=== PATIENT | female | born 2000 | race Caucasian/White ===

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

== ENCOUNTER 2018-06-17 07:48 | Inpatient (IN) | payer OTHER ==
[~2018-06-17] VITALS: Ht 162.6 cm; Wt 0.4 kg
[~2018-06-17 07:48] MED LIST changes: +Verotin-Gr Cap1 EACH PO
[2018-06-17] MEDS ORDERED: IRON 100 PLUS1 EACH (09:25)
[2018-06-17 09:50] LABS: BASOPHILS ABSOLUTE AUTO 0.03 K/mm3 (0.00-0.23); BASOPHILS PERCENT AUTO 0 % (0-2); EOSINOPHILS ABSOLUTE AUTO 0.04 K/mm3 (0.00-0.68); EOSINOPHILS PERCENT AUTO 0 % (0-6); Hematocrit 35.4 % (33.0-51.0); Hemoglobin 11.5 g/dL (11.5-16.0); IMMATURE GRAN ABSOLUTE AUTO 0.15 K/mm3 (0.00-0.10); IMMATURE GRAN PERCENT AUTO 1 % (0-1); LYMPHOCYTES ABSOLUTE AUTO 1.66 K/mm3 (0.84-5.20); LYMPHOCYTES PERCENT AUTO 14 % (21-46); MONOCYTES ABSOLUTE AUTO 0.68 K/mm3 (0.16-1.47); MONOCYTES PERCENT AUTO 6 % (4-13); Mean Corpuscular HGB 27.6 pg (26.0-34.0); Mean Corpuscular HGB Conc 32.5 g/dL (31.5-36.5); Mean Corpuscular Volume 85 fL (80-100); NEUTROPHILS ABSOLUTE AUTO 9.27 K/mm3 (1.96-9.15); NEUTROPHILS PERCENT AUTO 78 % (41-73); Platelet Count 219 K/mm3 (150-400); RDW Coefficient Variation 13.3 % (11.7-14.2); RDW Standard Deviation 41.5 fL (35.1-46.3); Red Blood Cell Count 4.16 M/mm3 (3.80-5.20); White Blood Cell Count 11.83 K/mm3 (4.00-11.30)
[2018-06-18 06:15] LABS: BASOPHILS ABSOLUTE AUTO 0.02 K/mm3 (0.00-0.23); BASOPHILS PERCENT AUTO 0 % (0-2); EOSINOPHILS ABSOLUTE AUTO 0.06 K/mm3 (0.00-0.68); EOSINOPHILS PERCENT AUTO 1 % (0-6); Hemoglobin 10.4 g/dL (11.5-16.0); IMMATURE GRAN ABSOLUTE AUTO 0.13 K/mm3 (0.00-0.10); IMMATURE GRAN PERCENT AUTO 1 % (0-1); LYMPHOCYTES ABSOLUTE AUTO 1.95 K/mm3 (0.84-5.20); LYMPHOCYTES PERCENT AUTO 18 % (21-46); MONOCYTES PERCENT AUTO 8 % (4-13); Mean Corpuscular HGB 27.4 pg (26.0-34.0); Mean Corpuscular HGB Conc 31.5 g/dL (31.5-36.5); Mean Corpuscular Volume 87 fL (80-100); Mean Platelet Volume 10.1 fL (9.1-12.4); NEUTROPHILS ABSOLUTE AUTO 7.75 K/mm3 (1.96-9.15); NEUTROPHILS PERCENT AUTO 72 % (41-73); Platelet Count 167 K/mm3 (150-400); RDW Coefficient Variation 13.7 % (11.7-14.2); RDW Standard Deviation 42.7 fL (35.1-46.3); Red Blood Cell Count 3.79 M/mm3 (3.80-5.20); White Blood Cell Count 10.71 K/mm3 (4.00-11.30)
--- NOTE | 2018-06-18 06:39 | NUR ---
PATIENT CALLED COMPLAINING OF CRAMPING PAIN TO ABDOMEN. IT WAS EXPLAINED TO PATIENT THAT SHE WAS PRESCRIBED IBUPROFEN Q8HRS PRN AND NEXT DOSE CAN BE TAKEN AT 0900. PATIENT'S MOM WAS VERY UPSET BY THIS. I EXPLAINED THAT LAST NIGHT THE PATIENT WAS OFFERED IV TORADOL TO WHICH SHE REFUSED THE MEDICATION. SHE ALSO REQUESTED THAT HER IV BE REMOVED. THE IV WAS REMOVED AT THE PATIENT'S REQUEST AFTER IT WAS EXPLAINED TO HER THAT SHE MIGHT HAVE TO GET ONE PUT BACK IN DEPENDENT ON HER LABS IN THE AM. PATIENT WAS OKAY WITH THAT. SO AGAIN IT WAS EXPLAINED AT THIS TIME THAT THE TORADOL WOULD HAVE BEEN MUCH MORE EFFECTIVE WITH PAIN MANAGEMENT AND SHE COULD HAVE HAD IT Q6, BUT SHE DID NOT WANT THE TORADOL. THE PATIENT SEEMED TO EXPRESS SOME UNDERSTANDING AT THIS POINT. I TOLD HER THAT THE ONLY OTHER THING ORDERED FOR HER WAS TYLENOL 325MG. SHE WAS WILLING TO GIVE THAT A TRY. WILL INFORM DAY SHIFT RN OF SITUATION. PATIENT KNOWS TO NOTIFY ONCOMING RN IF THE TYLENOL IS INEFFECTIVE AND WE CAN POSSIBLY REQUEST SOMETHING MORE FROM HER PROVIDER.
[2018-06-18] MEDS ORDERED: IBUP800 PO (13:43)
--- NOTE | 2018-06-18 13:44 | NUR ---
CONSULT. MOM IS YOUNG AND INEXPERIENCED. GRANDMOTHER HAS BEEN CHANGING BABY DIAPERS. MOM STATES BF IS GOING WELL, VAGUELY LISTENING TO EDUCATION INSTRUCTIONS. INSTRUCT HOW TO WIDEN LATCH FURTHER IF SHE FEELS PINCHING. INSTRUCT IN CHANGES TO EXPECT DURING FIRST WEEK WITH FEEDINGS AND WITH BABY AND REFERRED TO BF BROCHURE AND PAGE 18 OF BF BOOKLET. SHE THEN STARTED TALKING ON HER PHONE. SPOUSE MORE ATTENTIVE TO INFORMATION. NO QUESTIONS.
--- NOTE | 2018-06-18 15:31 | NUR ---
DISCHARGE DISCHARGE TEACHING DONE. PARENTS VERBALIZES UNDERSTANDING OF INSTRUCTIONS AND FOLLOW UP APPOINTMENTS. NO QUESTIONS OR CONCERNS.
== END 2018-06-18 15:55 | disposition home or self-care (01) | DRG 806 ==
LOC: BC 07:48
PROVIDERS: ADMIT Nurse Practitioner Obstetrics & Gynecology
PROC: 10E0XZZ Delivery of Products of Conception, External Approach (ICD-10-PCS; principal; 2018-06-18)
PROC: 00HU33Z Insertion of Infusion Device into Spinal Canal, Percutaneous Approach (ICD-10-PCS; 2018-06-18)
PROC: 3E0R3BZ Introduction of Anesthetic Agent into Spinal Canal, Percutaneous Approach (ICD-10-PCS; 2018-06-18)
DX: O24.420 Gestational diabetes mellitus in childbirth, diet controlled (principal); O99.324 Drug use complicating childbirth; Z37.0 Single live birth; O99.52 Diseases of the respiratory system complicating childbirth; J45.990 Exercise induced bronchospasm; Z3A.39 39 weeks gestation of pregnancy; O99.334 Smoking (tobacco) complicating childbirth; F17.210 Nicotine dependence, cigarettes, uncomplicated
CPT/HCPCS: 36415; 36416; 51702; 82947; 85025; J1885; J2590; J3010; J7120

== ENCOUNTER → 2019-06-23 | Outpatient (CLI) | payer OTHER ==
[~2019-06-23] MED LIST changes: +IRON 100 PLUS1 EACH
== END | disposition home or self-care (01) ==
LOC: LAB 18:08 → LAB SHORT 18:08
DX: R30.0 Dysuria (principal)
CPT/HCPCS: 87077; 87086; 87186

== ENCOUNTER 2021-08-21 04:45 | Emergency (ER) | payer OTHER ==
[~2021-08-21] VITALS: Ht 157.5 cm; Wt 47.6 kg
[~2021-08-21 04:45] MED LIST changes: +DOCU100 PO
[2021-08-21] MEDS ORDERED: [UNRECOGNIZED DRUG - OTHER] MC (05:15)
[2021-08-21] MEDS ORDERED: ALBU90OI INH (07:20)
[2021-08-21] MEDS ORDERED: BENZ100A PO (07:20)
[2021-08-21] MEDS ORDERED: ALLERCLEAR10 MG PO (07:20)
== END 2021-08-21 07:31 | disposition home or self-care (01) ==
LOC: ER 04:45
DX: J45.901 Unspecified asthma with (acute) exacerbation (principal); J20.9 Acute bronchitis, unspecified; R11.10 Vomiting, unspecified; F17.200 Nicotine dependence, unspecified, uncomplicated; Z88.0 Allergy status to penicillin; R10.819 Abdominal tenderness, unspecified site
CPT/HCPCS: 71046; 94640; 94664; A9270

== ENCOUNTER 2021-08-27 09:20 | Emergency (ER) | payer OTHER ==
[~2021-08-27] VITALS: Ht 157.5 cm; Wt 52.2 kg
[~2021-08-27 09:20] MED LIST changes: +ALBU90OI INH; +ALLERCLEAR10 MG PO; +BENZ100A PO; +[UNRECOGNIZED DRUG - OTHER] MC
[2021-08-27 10:45] LABS: Anion Gap 5 mmol/L (6-16); Beta HCG, Quantitative, Serum 30 mIU/mL (0-3); Blood Urea Nitrogen 7 mg/dL (8-24); Bun/Creatinine Ratio 10.1 (12.0-20.0); CO2, Blood 27 mmol/L (21-32); Calcium, Blood 9.3 mg/dL (8.5-10.1); Chloride, Blood 107 mmol/L (98-108); Glomerular Filtration Rate >60 (60-); Glucose, Blood 93 mg/dL (70-99); Potassium, Blood 3.4 mmol/L (3.5-5.5); Sodium, Blood 139 mmol/L (136-145)
[2021-08-27 10:55] LABS: BASOPHILS ABSOLUTE AUTO 0.01 K/mm3 (0.00-0.23); BASOPHILS PERCENT AUTO 0 % (0-2); EOSINOPHILS ABSOLUTE AUTO 0.06 K/mm3 (0.00-0.68); EOSINOPHILS PERCENT AUTO 1 % (0-6); Hematocrit 35.5 % (33.0-51.0); IMMATURE GRAN ABSOLUTE AUTO 0.01 K/mm3 (0.00-0.10); IMMATURE GRAN PERCENT AUTO 0 % (0-1); LYMPHOCYTES ABSOLUTE AUTO 1.31 K/mm3 (0.84-5.20); LYMPHOCYTES PERCENT AUTO 21 % (21-46); MONOCYTES ABSOLUTE AUTO 0.44 K/mm3 (0.16-1.47); MONOCYTES PERCENT AUTO 7 % (4-13); Mean Corpuscular HGB 28.7 pg (26.0-34.0); Mean Corpuscular HGB Conc 33.8 g/dL (31.5-36.5); Mean Corpuscular Volume 85 fL (80-100); Mean Platelet Volume 10.2 fL (9.1-12.4); NEUTROPHILS ABSOLUTE AUTO 4.41 K/mm3 (1.96-9.15); NEUTROPHILS PERCENT AUTO 71 % (41-73); Platelet Count 237 K/mm3 (150-400); RDW Coefficient Variation 11.8 % (11.7-14.2); RDW Standard Deviation 36.1 fL (35.1-46.3); Red Blood Cell Count 4.18 M/mm3 (3.80-5.20); White Blood Cell Count 6.24 K/mm3 (4.00-11.30)
[2021-08-27 11:07] LABS: Source, Urine Clean Catch
[2021-08-27 11:27] LABS: Appearance, Urine Clear (Clear); Bilirubin, Urine Neg (Neg); Blood, Urine 4+ (Neg); Color, Urine Yellow (P-Yellow); Glucose Qualitative, Urine Neg (Neg); Ketones, Urine 1+ (Neg); Leukocyte Esterase, Urine 1+ (Neg); Nitrite, Urine Neg (Neg); Protein, Urine 2+ (Neg); Urobilinogen, Urine 1+ (Normal); pH, Urine 6.5 (5.0-8.0)
[2021-08-27 12:00] LABS: Squamous Epithelial Cells Rare /hpf (Few); White Blood Cells, Urine 0-2 /hpf (0-5)
[2021-08-27 12:01] LABS: Bacteria Mod /hpf; Mucus Mod (0-Heavy)
== END 2021-08-27 13:37 | disposition home or self-care (01) ==
LOC: ER 09:20
PROVIDERS: Physician Assistant
DX: O03.4 Incomplete spontaneous abortion without complication (principal); Z88.0 Allergy status to penicillin; Z79.899 Other long term (current) drug therapy
CPT/HCPCS: 36415; 76801; 76817; 80048; 81001; 84702; 85025

== ENCOUNTER 2022-01-27 07:37 | Emergency (ER) | payer OTHER ==
[~2022-01-27] VITALS: Ht 160 cm; Wt 51.3 kg
[2022-01-27] MEDS ORDERED: PRENATE ENHANC1 EACH PO (08:13)
[2022-01-27 08:38] LABS: BASOPHILS ABSOLUTE AUTO 0.03 K/mm3 (0.00-0.23); BASOPHILS PERCENT AUTO 0 % (0-2); EOSINOPHILS ABSOLUTE AUTO 0.16 K/mm3 (0.00-0.68); EOSINOPHILS PERCENT AUTO 2 % (0-6); Hematocrit 38.5 % (33.0-51.0); Hemoglobin 13.1 g/dL (11.5-16.0); IMMATURE GRAN ABSOLUTE AUTO 0.01 K/mm3 (0.00-0.10); IMMATURE GRAN PERCENT AUTO 0 % (0-1); LYMPHOCYTES ABSOLUTE AUTO 1.54 K/mm3 (0.84-5.20); LYMPHOCYTES PERCENT AUTO 23 % (21-46); MONOCYTES ABSOLUTE AUTO 0.43 K/mm3 (0.16-1.47); MONOCYTES PERCENT AUTO 6 % (4-13); Mean Corpuscular HGB 29.4 pg (26.0-34.0); Mean Corpuscular Volume 87 fL (80-100); Mean Platelet Volume 10.1 fL (9.1-12.4); NEUTROPHILS ABSOLUTE AUTO 4.66 K/mm3 (1.96-9.15); NEUTROPHILS PERCENT AUTO 68 % (41-73); Platelet Count 210 K/mm3 (150-400); RDW Coefficient Variation 12.5 % (11.7-14.2); RDW Standard Deviation 39.7 fL (35.1-46.3); Red Blood Cell Count 4.45 M/mm3 (3.80-5.20); White Blood Cell Count 6.83 K/mm3 (4.00-11.30)
[2022-01-27 09:04] LABS: Bun/Creatinine Ratio 15.3 (12.0-20.0); Calcium, Blood 8.3 mg/dL (8.5-10.1); Creatinine, Blood 0.79 mg/dL (0.40-1.00); Potassium, Blood 4.3 mmol/L (3.5-5.5)
== END 2022-01-27 09:40 | disposition home or self-care (01) ==
LOC: ER 07:37
PROVIDERS: Emergency Medicine
DX: O03.9 Complete or unspecified spontaneous abortion without complication (principal); Z3A.09 9 weeks gestation of pregnancy; Z87.891 Personal history of nicotine dependence
CPT/HCPCS: 36415; 76801; 80048; 84702; 85025; 86900; 86901; 99284-25

== ENCOUNTER 2023-11-01 23:19 | Emergency (ER) | payer OTHER ==
[~2023-11-01] VITALS: Ht 160 cm; Wt 79.4 kg
[~2023-11-01 23:19] MED LIST changes: +IBU800 M1 PO; +PRENATE ENHANC1 EACH PO
[2023-11-01] MEDS ORDERED: NS 1,000 ML IV SCH (23:40)
[2023-11-01] MEDS ORDERED: INCASSIA0.35 MG PO (23:47)
[2023-11-02 00:12] LABS: BASOPHILS ABSOLUTE AUTO 0.02 K/mm3 (0.00-0.23); BASOPHILS PERCENT AUTO 0 % (0-2); EOSINOPHILS ABSOLUTE AUTO 0.11 K/mm3 (0.00-0.68); EOSINOPHILS PERCENT AUTO 2 % (0-6); Hematocrit 35.6 % (33.0-51.0); Hemoglobin 11.7 g/dL (11.5-16.0); IMMATURE GRAN ABSOLUTE AUTO 0.01 K/mm3 (0.00-0.10); IMMATURE GRAN PERCENT AUTO 0 % (0-1); LYMPHOCYTES PERCENT AUTO 35 % (21-46); MONOCYTES ABSOLUTE AUTO 0.43 K/mm3 (0.16-1.47); MONOCYTES PERCENT AUTO 8 % (4-13); Mean Corpuscular HGB 26.3 pg (26.0-34.0); Mean Corpuscular HGB Conc 32.9 g/dL (31.5-36.5); Mean Corpuscular Volume 80 fL (80-100); Mean Platelet Volume 10.1 fL (9.1-12.4); NEUTROPHILS ABSOLUTE AUTO 3.19 K/mm3 (1.96-9.15); NEUTROPHILS PERCENT AUTO 55 % (41-73); Platelet Count 260 K/mm3 (150-400); RDW Coefficient Variation 13.1 % (11.7-14.2); RDW Standard Deviation 37.7 fL (35.1-46.3); Red Blood Cell Count 4.45 M/mm3 (3.80-5.20); White Blood Cell Count 5.76 K/mm3 (4.00-11.30)
[2023-11-02 00:27] LABS: Bun/Creatinine Ratio 8.9 (12.0-20.0); Creatinine, Blood 0.78 mg/dL (0.40-1.00); Potassium, Blood 3.2 mmol/L (3.5-5.5)
[2023-11-02 01:00] VITALS: BP 114/65
[2023-11-02] MEDS ORDERED: Potassium Chloride 20 MEQ TabCR PO ONE (01:05)
== END 2023-11-02 01:11 | disposition home or self-care (01) ==
LOC: ER 23:19
PROVIDERS: Emergency Medicine
DX: R55 Syncope and collapse (principal); E86.0 Dehydration; E87.6 Hypokalemia; Z88.0 Allergy status to penicillin; Z87.891 Personal history of nicotine dependence; Z79.899 Other long term (current) drug therapy
CPT/HCPCS: 80048; 85025; A9270; J7030

== ENCOUNTER 2024-02-24 16:27 | Emergency (ER) | payer OTHER ==
[~2024-02-24] VITALS: Ht 160 cm; Wt 69.8 kg
[~2024-02-24 16:27] MED LIST changes: +INCASSIA0.35 MG PO
[2024-02-24 16:36] VITALS: BP 145/62
[2024-02-24] MEDS ORDERED: Ketorolac Tromethamine 15mg Vial IM ONE (16:50)
[2024-02-24] MEDS ORDERED: HYDR1TAB94 PO (17:36)
== END 2024-02-24 18:07 | disposition home or self-care (01) ==
LOC: ER 16:27
DX: S92.511A Displaced fracture of proximal phalanx of right lesser toe(s), initial encounter for closed fracture (principal); W18.09XA Striking against other object with subsequent fall, initial encounter; Z88.0 Allergy status to penicillin; Z79.899 Other long term (current) drug therapy; Z87.891 Personal history of nicotine dependence
CPT/HCPCS: 73630; 96372; 99283-25; J1885

== ENCOUNTER → 2025-03-18 | Outpatient (CLI) | payer OTHER ==
[~2025-03-18] MED LIST changes: +HYDR1TAB94 PO
[2025-03-18 14:09] LABS: BASOPHILS ABSOLUTE AUTO 0.03 K/mm3 (0.00-0.23); BASOPHILS PERCENT AUTO 1 % (0-2); EOSINOPHILS ABSOLUTE AUTO 0.02 K/mm3 (0.00-0.68); EOSINOPHILS PERCENT AUTO 1 % (0-6); Hematocrit 40.2 % (33.0-51.0); Hemoglobin 13.4 g/dL (11.5-16.0); IMMATURE GRAN ABSOLUTE AUTO 0.01 K/mm3 (0.00-0.10); IMMATURE GRAN PERCENT AUTO 0 % (0-1); LYMPHOCYTES ABSOLUTE AUTO 1.42 K/mm3 (0.84-5.20); LYMPHOCYTES PERCENT AUTO 32 % (21-46); MONOCYTES ABSOLUTE AUTO 0.33 K/mm3 (0.16-1.47); MONOCYTES PERCENT AUTO 7 % (4-13); Mean Corpuscular HGB Conc 33.3 g/dL (31.5-36.5); Mean Corpuscular Volume 84 fL (80-100); NEUTROPHILS ABSOLUTE AUTO 2.62 K/mm3 (1.96-9.15); NEUTROPHILS PERCENT AUTO 59 % (41-73); NRBC ABSOLUTE 0.00 K/mm3 (0.00-0.02); NRBC Auto 0.0 /100 WBC (0.0-0.2); Platelet Count 238 K/mm3 (150-400); RDW Coefficient Variation 12.7 % (11.7-14.2); RDW Standard Deviation 38.6 fL (35.1-46.3)
[2025-03-18 14:23] LABS: Alanine Aminotransfer (ALT/SGP 13.0 U/L (12-78); Albumin, Blood 5.0 g/dL (3.4-5.0); Albumin/Globulin Ratio 1.6 (0.8-1.8); Anion Gap 14.0 mmol/L (3-11); Aspartate Aminotrans (AST/SGOT 13.0 U/L (12-37); Bilirubin, Total 0.8 mg/dL (0.1-1.0); Blood Urea Nitrogen 9.0 mg/dL (8-24); CO2, Blood 25.0 mmol/L (21-32); Calcium, Blood 9.1 mg/dL (8.5-10.1); Chloride, Blood 104.0 mmol/L (98-108); Creatinine, Blood 0.94 mg/dL (0.40-1.00); Globulin, Blood 3.1 g/dL (2.2-4.0); Glucose, Blood 89.0 mg/dL (70-99); Potassium, Blood 3.9 mmol/L (3.5-5.5); Sodium, Blood 139.0 mmol/L (136-145); Total Protein, Blood 8.1 g/dL (6.4-8.2)
[2025-03-18 15:04] LABS: Ferritin, Serum 22.0 ng/mL (8-252); Total Iron Binding Capacity 326.0 ug/dL (250-450)
== END ==
LOC: LAB 14:06 → LAB SHORT 14:06
PROVIDERS: Physician Assistant
DX: R55 Syncope and collapse (principal); Z86.39 Personal history of other endocrine, nutritional and metabolic disease
CPT/HCPCS: 80053; 82728; 83540; 83550; 85025